=== PATIENT | female | born 1985 ===

== ENCOUNTER 2018-01-06 15:54 | Emergency (ER) | payer SELFPAY ==
[2018-01-06 15:54] VITALS: BMI 27.5
[2018-01-06] MEDS ORDERED: Sodium Chloride 0.9% 1,000 ML IV STA ×2 (16:50→17:56)
--- NOTE | 2018-01-06 17:12 | ED PDOC ---
HPI: General Adult Time Seen by Provider: 01/06/18 16:32 Chief Complaint (Nursing): Fever History Per: Patient Additional Complaint(s): Pt. states since yesterday she's had fever associated with diffuse bodyaches, lower back pain, and 2 episodes of non-bloody vomiting this morning. Pt. took ibuprofen today at 1230. States she's also had a mild headache (currently not present). Denies cough, congestion, sore throat, abdominal pain, diarrhea, hematemesis, SOB, chest pain, sick contacts, recent travel, sore throat. Past Medical History Reviewed: Historical Data, Nursing Documentation, Vital Signs Vital Signs: Last Vital Signs Temp 100.9 F H 01/06/18 18:39 Pulse 96 H 01/06/18 18:39 Resp 17 01/06/18 18:39 BP 98/63 L 01/06/18 18:39 Pulse Ox 99 01/06/18 19:13 - Surgical History Surgical History: (x 1) - Family History Family History: States: No Known Family Hx - Home Medications Home Medications: Ambulatory Orders Medication Instructions Recorded Cyclobenzaprine HCl [Flexeril] 10 mg PO Q8 #20 tab 12/02/14 Prednisone 50 mg PO DAILY #6 tab 12/02/14 Oseltamivir [Tamiflu] 75 mg PO BID #9 cap 01/06/18 - Allergies Allergies/Adverse Reactions: Allergies Allergy/AdvReac Type Severity Reaction Status Date / Time No Known Allergies Allergy Verified 03/07/15 09:42 Review of Systems ROS Statement: Except As Marked, All Systems Reviewed And Found Negative Constitutional: Positive for: Fever, Malaise Gastrointestinal: Positive for: Vomiting Skin: Negative for: Rash Physical Exam - Physical Exam Appears: Positive for: Well, Non-toxic, No Acute Distress Head Exam: Positive for: ATRAUMATIC, NORMAL INSPECTION, NORMOCEPHALIC Skin: Positive for: Normal Color, Warm. Negative for: Rash Eye Exam: Positive for: Normal appearance, EOMI, PERRL. Negative for: Periorbital swelling, Periorbital tenderness, Conjunctival injection (b/l) ENT: Positive for: TM Is/Are (non-erythematous, non-bulging b/l), Pharyngeal Erythema. Negative for: Tonsillar Exudate, Tonsillar Swelling Neck: Positive for: Normal, Painless ROM Cardiovascular/Chest: Positive for: Regular Rate, Rhythm. Negative for: Murmur , Tachycardia Respiratory: Positive for: Normal Breath Sounds. Negative for: Respiratory Distress Gastrointestinal/Abdominal: Positive for: Normal Exam, Bowel Sounds, Soft. Negative for: Tenderness (to deep palpation), Distended Back: Positive for: Normal Inspection. Negative for: L CVA Tenderness, R CVA Tenderness Extremity: Positive for: Normal ROM. Negative for: Calf Tenderness (b/l) Neurologic/Psych: Positive for: Alert, Oriented. Negative for: Aphasia, Facial Droop - Laboratory Results Result Diagrams: 01/06/18 17:05 01/06/18 17:05 - ECG O2 Sat by Pulse Oximetry: 99 - Progress ED Course And Treament: Labs, tylenol 975mg PO, VBG, IV NS bolus x 1 ordered. 1840 Repeat temp: 100.9 Motrin 600mg PO, additional IV NS bolus x 1 ordered. On re-evaluation, pt. seen talking on cell phone an reports feeling much better. 2006 On final re-evaluation, pt. in no distress. Denies headache, neck pain, abdominal pain. Tamiflu 75mg PO ordered. Informed of results and plan. Agrees with care. Case d/w Dr. Pratt who agrees with care and disposition. Disposition - Clinical Impression Clinical Impression: Fever in adult, Viral syndrome - Patient ED Disposition Is Patient to be Admitted: No - Disposition Referrals: [email or web address] [Outside] [facility] [Outside] Disposition: Routine/Home Disposition Time: 19:13 Condition: IMPROVED Additional Instructions: Follow up with [facility] for further evaluation Take Tylenol or Motrin for pain. Drink plenty of fluids. Return to ED immediately if symptoms worsen Prescriptions: Oseltamivir [Tamiflu] 75 mg PO BID #9 cap Instructions: Fever, Adult (DC) Forms: [email or web address] ([place]ese)
[2018-01-06 17:18] LABS: VENOUS BLOOD GAS BASE EXCESS 6.4 mmol/L (0.0-2.0); VENOUS BLOOD GAS PCO2 48 mmHg (40-60); VENOUS BLOOD GAS PO2 16 mm/Hg (30-55); VENOUS BLOOD PH 7.43 (7.32-7.43)
[2018-01-06 17:33] LABS: ALB/GLOB RATIO 1.3 (1.0-2.1); ALBUMIN 4.3 g/dL (3.5-5.0); ALT/SGPT 39 U/L (9-52); AST/SGOT 33 U/L (14-36); BLOOD UREA NITROGEN 17 mg/dl (7-17); GFR AFRICAN-AMERICAN > 60; GFR NON-AFRICAN AMERICAN > 60
[2018-01-06 17:35] LABS: BASO % 0.2 % (0.0-2.0); EOS % 0.1 % (0.0-4.0); HEMOGLOBIN 13.3 g/dL (12.0-16.0); LYMPH # 0.5 K/uL (1.0-4.3); LYMPH % 7.5 % (20.0-40.0); MEAN CELL VOLUME 88.9 fl (81.0-99.0); MEAN CORPUSCULAR HEMOGLOBIN 29.5 pg (27.0-31.0); MEAN CORPUSCULAR HGB CONC 33.1 g/dL (33.0-37.0); MEAN PLATELET VOLUME 9.9 fl (7.2-11.7); MONO # 0.3 K/uL (0.0-0.8); MONO % 5.3 % (0.0-10.0); NEUT # 5.7 K/uL (1.8-7.0); NEUT % 86.9 % (50.0-75.0); PLATELET COUNT 210 K/uL (130-400); RBC 4.53 Mil/uL (3.80-5.20); RED CELL DISTRIBUTION WIDTH 13.5 % (11.5-14.5); WHITE BLOOD COUNT 6.6 K/uL (4.8-10.8)
[2018-01-06 17:54] LABS: SQUAMOUS EPITHIAL 5 /hpf (0-5); URINE BILIRUBIN NEGATIVE (NEGATIVE); URINE BLOOD MODERATE (NEGATIVE); URINE CLARITY SLIGHTY-CLOUDY (Clear); URINE COLOR YELLOW (YELLOW); URINE GLUCOSE (UA) NEG (Normal); URINE LEUKOCYTE ESTERASE NEG Leu/uL (Negative); URINE PROTEIN 30 mg/dL (NEGATIVE)
[2018-01-06 18:15] LABS: BANDS 1 % (0-2); LYMPHOCYTE 3 % (20-50); MONOCYTE 4 % (0-10); NEUTROPHIL 90 % (42-75); PLATELET ESTIMATE NORMAL (NORMAL); REACTIVE LYMPHOCYTES 2 % (0-0); TOTAL CELLS COUNTED 100
[2018-01-06 20:22] VITALS: RESP 16; TEMP 99.1; O2SAT 100
[2018-01-06 20:30] VITALS: BP 106/53; PULSE 88
== END 2018-01-06 20:34 | disposition home or self-care (01) ==
LOC: H.ER 15:54
DX: B34.9 Viral infection, unspecified (principal); R50.9 Fever, unspecified
CPT/HCPCS: 80053; 81003; 81025; 82803; 85025; 87040; 87070; 87086; 87430; 87804; 96360; 96361; 99285; J7040